=== PATIENT | female | born 1960 | race Caucasian/White ===

== ENCOUNTER 2023-09-20 14:40 | Emergency (ER) | payer BC, SELFPAY ==
[2023-09-20 14:43] VITALS: BP 196/104
[2023-09-20 15:02] LABS: % Basophils 0.7 % (0-2); % Eosinophils 0.8 % (0-6); % Immature Granulocytes 0.4 % (0-0.5); % Lymphocytes 17.9 % (20.5-51.1); % Monocytes 7.5 % (1.7-9.3); % Neutrophils 72.7 % (42.2-75.2); Absolute Basophils 0.1 10^3/uL (0-0.2); Absolute Eosinophils 0.1 10^3/uL (0-0.7); Absolute Lymphocytes 1.3 10^3/uL (1.2-3.4); Absolute Monocytes 0.6 10^3/uL (0.1-0.6); Absolute Neutrophils 5.3 10^3/uL (1.4-6.5); Hematocrit 33.7 % (37.0-47.0); Hemoglobin 11.2 g/dL (12.0-16.0); Mean Corp Hgb Conc. 33.2 g/dL (33.0-37.0); Mean Corpuscular Hgb 27.9 pg (27.0-31.0); Mean Platelet Volume 9.7 fL (7.4-10.4); Nucleated Red Blood Cells % 0 %; Platelet Count 193 10^3/uL (130-400); Red Blood Cell Count 4.01 10^6/uL (4.20-5.40); White Blood Cell Count 7.3 10^3/uL (4.8-10.8)
[2023-09-20 15:15] LABS: ALT (SGPT) 37 U/L (0-35); AST (SGOT) 42 U/L (14-36); Albumin 4.1 g/dl (3.5-5.0); Alkaline Phosphatase 83 U/L (38-126); Blood Urea Nitrogen 25 mg/dl (7-17); Calcium 8.9 mg/dl (8.4-10.2); Carbon Dioxide 31 mmol/L (22-30); Chloride 102 mmol/L (98-107); Glucose 113 mg/dl (70-99); Potassium 4.3 mmol/L (3.5-5.1); Sodium 136 mmol/L (135-145); Total Bilirubin 0.5 mg/dl (0.2-1.3); eGFR > 60.00
[2023-09-20 15:24] LABS: Troponin I < 0.012 ng/ml
--- NOTE | 2023-09-20 16:06 | ED.GENMED ---
History of Present Illness
General
Chief Complaint: Chest Pain
Source: patient
Exam Limitations: none
Time Seen by Provider: 09/20/23 15:59
Nursing documentation reviewed up to this point in time: agreed with
Travel History
Have you had any contact with someone who has COVID-19?: No
Do you have any symptoms of coronavirus? Fever > 100 degrees, chills, cough, shortness of breath, sore throat, loss of taste or smell, muscle aches, or headache?: No
History of Present Illness
History of Present Illness:
Patient is a 62-year-old female who presents to the ER complaining of left-sided chest pain. She reports yesterday morning after she got out of bed and woke up she felt pain in her left chest that was worse when she took a deep breath or moved her
left arm. She thought she slept wrong. She had leftover Flexeril at home and tried that along with Tylenol ibuprofen but still has discomfort. She denies any associated shortness of breath. She feels left-sided pain worse when she takes a deep
breath sits up or moves or moves her left arm. She denies any rash recent illness fever chills. She denies any actual injury. She denies any history of DVT PE. She denies any lower extremity swelling. She is not on oral contraceptives. She
does not smoke. no recent travel.
Review of Systems
Review of Systems
Allergies reviewed?: Yes
All Other Systems: ROS reviewed and negative except as documented in HPI and ROS
Constitutional: Reports no symptoms; Denies fever, fatigue or chills
EENT: Reports no symptoms
Respiratory: Denies cough or trouble breathing
Cardiac: Reports chest pain (left sided chest pain)
ABD/GI: Reports no symptoms
Musculoskeletal: Reports no symptoms
Skin: Reports no symptoms
Neurological: Reports no symptoms
Hematologic/Lymphatic: Reports no symptoms
Psychiatric: Reports no symptoms
Phy Exam
General Physical Exam
General Presentation: no apparent distress
General age: appears stated age
General Skin: warm and dry
General Habitus: normal
General Mental: alert
General Hydration: appears well hydrated
Cardiovascular Exam
Cardiovascular Exam: regular rate/rhythm, no murmur and normal peripheral pulses
Pulmonary Exam
Pulmonary Exam: lungs clear, no respiratory distress and other (left anterior chest is mildly sore to palpation no rash )
Neurological Exam
Neurological Exam: alert and oriented x3
Skin Exam
Skin Exam: normal color and warm/dry
Scores
Heart Score for Chest Pain Patients
STEMI patient?: Not applicable
Course
Orders/Labs/Results
Orders:
Orders
09/20/23 14:45
Electrocardiogram (*1) Urgent
Reason for Study: Chest Pain
EKG- Treatment ONCE
09/20/23 14:51
Complete Blood Count/With Diff Urgent
Comprehensive Metabolic Panel Urgent
Troponin I Urgent
09/20/23 16:30
IV Insert/Care/Rem.- Treatment PRN
Ketorolac [Toradol] 15 mg IV NOW STA
Lidocaine [Lidocaine 4% Patch] 1 patch TOPICAL NOW STA
09/20/23 16:46
DDimer [D-Dimer] Urgent
09/20/23 17:53
Chest [CR Chest - 2 Views ] Urgent
Comment:
Reason For Exam: cp
Abnormal Lab Results
09/20/23
14:51
RBC 4.01 L 10^6/uL
(4.20-5.40)
Hgb 11.2 L g/dL
(12.0-16.0)
Hct 33.7 L %
(37.0-47.0)
RDW 15.0 H %
(11.5-14.5)
Lymphocytes % 17.9 L %
(20.5-51.1)
Carbon Dioxide 31 H mmol/L
(22-30)
BUN 25 H mg/dl
(7-17)
Glucose 113 H mg/dl
(70-99)
AST 42 H U/L
(14-36)
ALT 37 H U/L
(0-35)
09/20/23 14:51
09/20/23 14:51
Vital Signs
Initial and Last Documented VS:
Initial Vital Signs
Temp Pulse Resp BP Pulse Ox
98.9 F 81 18 196/104 94
09/20/23 14:43 09/20/23 14:43 09/20/23 14:43 09/20/23 14:43 09/20/23 14:43
Last Documented Vital Signs
Temp Pulse Resp BP Pulse Ox
98.9 F 88 13 170/88 92
09/20/23 14:43 09/20/23 18:00 09/20/23 18:00 09/20/23 16:11 09/20/23 18:00
MDM/Problems Addressed
Differential Diagnosis Includes:
not limited to: CAD musculoskeletal chest pain. Less likely PE
MDM/Problems Addressed:
Symptoms are consistent more with muscular chest pain. Patient noticed pain after waking up yesterday morning thought she slept wrong. Pain in the left chest is worse with movement sitting up taking a deep breath and moving left arm. Patient is
no cardiac history. She is no acute findings on EKG. She had a negative cardiac troponin and negative D-dimer. She is not tachycardic not sure of breath not hypoxic. Patient was given Toradol and lidocaine patch and feels much better. Will DC
with lidocaine patches with continued ibuprofen and Tylenol alternating with close outpatient follow-up PCP
*Radiology
Radiology exam reviewed: preliminary read by ED provider
*Pulse Oximetry
Patient hypoxic: no
*EKG
Interpreted by ED Provider?: Yes
Comparison EKG: no changes
Heart Rate: 78
Rate: normal
Rhythm: sinus
Ischemia: no ischemia
*Critical Care Note
Total Time (30-74mins, 75-104mins- exclusive of procedures): Not Applicable
ED Attending Note
-
Portions of this chart may have been created with voice recognition software.� Occasional wrong word or��sound alike� substitutions may have occurred due to the inherent limitations of voice recognition software.
Discharge Plan
Departure
Patient Disposition: Home (Routine Discharge)
Date of Disposition: 09/20/23
Time of Disposition: 18:35
Patient with high blood pressure during this ER visit?: Yes
Condition: Fair
Covid-19: Not Applicable
Discharge Problem:
Chest pain
Instructions: Chest Pain PCP Follow Up
Prescriptions:
New
lidocaine 5 % adhesive patch,medicated
1 patch topical DAILY Qty: 15 0RF
Rx Instructions:
remove after 12 hrs
No Action
pioglitazone [Actos] 15 mg Tablet
15 mg PO DAILY
carvedilol 12.5 mg Tablet
12.5 mg PO BID
citalopram 40 mg Tablet
40 mg PO DAILY
hydrocodone-acetaminophen 5-300 mg Tablet
1 tab PO TIDPRN PRN (Reason: severe pain)
Patient Comments:
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
losartan 50 mg Tablet
50 mg PO DAILY
tizanidine 2 mg tablet
2 mg PO TIDPRN PRN (Reason: spams)
therapeutic multivitamin Tablet
1 tab PO DAILY
aspirin 81 mg Tablet,Delayed Release (Dr/Ec)
81 mg PO DAILY
gabapentin 300 mg Capsule
300 mg PO BID
pantoprazole 40 mg tablet,delayed release (DR/EC)
40 mg PO DAILY Qty: 30 0RF
Referrals:
Augusto Wilkinson MD [Family Provider] -
Activity Restrictions/Additional Instructions:
As discussed symptoms are likely musculoskeletal pain. You may alternate between ibuprofen and Tylenol. You may use lidocaine patch daily. Remove after 12 hours. Follow-up with family doctor in the next 2 to 3 days for reevaluation and return
if any worsening of symptoms .
Interventions
Interventions:
*Risk Screen - Suicide Last Done: 09/20/23 14:43
*General Assessment Last Done: 09/20/23 14:43
*Neglect/Abuse Screening Last Done: 09/20/23 14:43
*ED COVID-19 Vaccine History Last Done: 09/20/23 14:43
ED- Cardiac Assessment Last Done: 09/20/23 17:02
[2023-09-20 16:11] VITALS: BP 170/88
[2023-09-20] MEDS: TORADOL 15 MG IV (16:40)
[2023-09-20] MEDS: LIDOCAINE 4% PATCH 1 PATCH TOPICAL (16:40)
[2023-09-20 17:07] LABS: D-Dimer 0.47 ug/mlFEU (0.00-0.50)
== END 2023-09-20 19:25 | disposition home or self-care (01) ==
LOC: EMR 14:40
PROVIDERS: Emergency Medicine; Nurse Practitioner; EMERGENCY PHYSICIAN Emergency Medicine; FAMILY PHYSICIAN Family Medicine
DX: R07.89 Other chest pain (principal); R03.0 Elevated blood-pressure reading, without diagnosis of hypertension
CPT/HCPCS: 99285; 96374; 71046; 80053; 84484; 85025; 85379; 93005

== ENCOUNTER 2024-10-17 06:14 | Emergency (ER) | payer BC, SELFPAY ==
[2024-10-17 06:17] VITALS: BP 144/90
[2024-10-17 06:44] LABS: % Basophils 0.6 % (0-2); % Eosinophils 2.1 % (0-6); % Immature Granulocytes 0.5 % (0-0.5); % Lymphocytes 15.3 % (20.5-51.1); % Monocytes 7.3 % (1.7-9.3); % Neutrophils 74.2 % (42.2-75.2); Absolute Eosinophils 0.1 10^3/uL (0-0.7); Absolute Monocytes 0.5 10^3/uL (0.1-0.6); Absolute Neutrophils 4.9 10^3/uL (1.4-6.5); Hematocrit 31.3 % (37.0-47.0); Hemoglobin 10.2 g/dL (12.0-16.0); Mean Corp Hgb Conc. 32.6 g/dL (33.0-37.0); Mean Corpuscular Hgb 27.3 pg (27.0-31.0); Mean Corpuscular Volume 83.7 fL (81.0-99.0); Nucleated Red Blood Cells % 0 %; Platelet Count 298 10^3/uL (130-400); Red Blood Cell Count 3.74 10^6/uL (4.20-5.40); Red Cell Dist. Width 14.4 % (11.5-14.5); White Blood Cell Count 6.6 10^3/uL (4.8-10.8)
[2024-10-17 07:08] VITALS: BP 124/69
[2024-10-17 07:10] VITALS: BMI 36.3
[2024-10-17 07:18] LABS: Troponin I 0.017 ng/ml
[2024-10-17 07:37] LABS: ALT (SGPT) 36 U/L (0-35); AST (SGOT) 24 U/L (14-36); Albumin 3.5 g/dl (3.5-5.0); Alkaline Phosphatase 92 U/L (38-126); Blood Urea Nitrogen 24 mg/dl (7-17); Calcium 9.2 mg/dl (8.4-10.2); Carbon Dioxide 28 mmol/L (22-30); Chloride 101 mmol/L (98-107); Estimated Creatinine Clearance 87 ml/min; Glucose 173 mg/dl (70-99); Potassium 4.8 mmol/L (3.5-5.1); Sodium 137 mmol/L (135-145); Total Bilirubin 0.5 mg/dl (0.2-1.3); Total Protein 6.3 g/dl (6.3-8.2); eGFR > 60.00
[2024-10-17 08:00] VITALS: BP 128/72
--- NOTE | 2024-10-17 08:05 | EDRN ---
Oscar Estrella PA in to see pt at this time.
--- NOTE | 2024-10-17 08:09 | ED.GENMED ---
History of Present Illness
General
Chief Complaint: Chest Pain
Source: patient
Exam Limitations: none
Time Seen by Provider: 10/17/24 07:59
History of Present Illness
History of Present Illness:
63yoF with a history of hypertension and type 2 diabetes presenting for evaluation of chest pain. Patient has been having intermittent issues with her left shoulder and pain with range of motion quite some time. She woke up this morning around 2
AM with a pain in her left shoulder/upper arm. The pain started to radiate into the left side of the chest. Pain is worse with movement as well as breathing. Pain has been constant since her symptoms began and she was unable to sleep due to her
symptoms. She tried ibuprofen without relief. Patient denies any diaphoresis, dizziness, syncope, nausea, vomiting, paresthesias, fevers. She denies any history of heart disease and has never seen a municipal engineer before. She was seen in the ED in
September 2023 for similar complaints.
Phy Exam
General Physical Exam
General Presentation: well appearing and no apparent distress
General age: appears stated age
General Skin: warm and dry
General Habitus: normal
General Mental: alert
ENT Exam
ENT Exam: normocephalic
Cardiovascular Exam
Cardiovascular Exam: regular rate/rhythm, no edema, no murmur and normal peripheral pulses (2+ radial and DP pulses bilaterally)
Pulmonary Exam
Pulmonary Exam: lungs clear, no respiratory distress, no rales, no crackles, no rhonchi and other (+Reproducible L sided chest wall tenderness. No skin changes.)
Neurological Exam
Neurological Exam: alert
Justino Coma Scale
Eye Opening: Spontaneous
Verbal Response: Oriented
Motor Response: Obeys Commands
GCS Total Score: 15
Skin Exam
Skin Exam: normal color and warm/dry
Psychiatric Exam
Psychiatric Exam: normal mood/affect
Scores
Heart Score for Chest Pain Patients
STEMI patient?: No
History: Slightly or Non-Suspicious
ECG: Normal
Age: >/= 65 years
Risk Factors: 1 or 2 Risk Factors
Troponin: </= Normal Limit
Heart Score for Chest Pain Patients: 3
Heart Score Risk: 2.5% MACE over next 6 weeks
Course
Orders/Labs/Results
Orders:
Orders
10/17/24 06:21
Electrocardiogram (*1) Urgent
Reason for Study: Chest Pain
EKG- Treatment ONCE
10/17/24 06:33
Complete Blood Count/With Diff Urgent
Comprehensive Metabolic Panel Urgent
Troponin I Urgent
10/17/24 08:08
EKG- Treatment ONCE
CR Chest - 2 Views Urgent
Comment:
Reason For Exam: CP
10/17/24 08:09
Cardiac Monitoring- Treatment ONCE
10/17/24 08:12
CR Shoulder - Left Min 2 View* Urgent
Comment:
Reason For Exam: atraumatic pain
10/17/24 08:34
D-Dimer Urgent
10/17/24 09:14
CT Chest PE Study Urgent
Comment:
Reason For Exam: Pleuritic L sided chest pain, elevated D-dimer
10/17/24 09:30
Electrocardiogram (*1) Urgent
Reason for Study: Chest Pain
10/17/24 09:52
Ketorolac [Toradol] 15 mg IV NOW STA
10/17/24 10:08
Troponin I Urgent
Abnormal Lab Results
10/17/24 10/17/24
06:33 08:34
RBC 3.74 L 10^6/uL
(4.20-5.40)
Hgb 10.2 L g/dL
(12.0-16.0)
Hct 31.3 L %
(37.0-47.0)
MCHC 32.6 L g/dL
(33.0-37.0)
Absolute Lymphs (auto) 1.0 L 10^3/uL
(1.2-3.4)
Lymphocytes % 15.3 L %
(20.5-51.1)
D-Dimer 0.60 H ug/mlFEU
(0.00-0.50)
BUN 24 H mg/dl
(7-17)
Glucose 173 H mg/dl
(70-99)
ALT 36 H U/L
(0-35)
10/17/24 06:33
10/17/24 06:33
Vital Signs
Initial and Last Documented VS:
Initial Vital Signs
Temp Pulse Resp BP Pulse Ox
97.3 F 86 22 144/90 94
10/17/24 06:17 10/17/24 06:17 10/17/24 06:17 10/17/24 06:17 10/17/24 06:17
Last Documented Vital Signs
Temp Pulse Resp BP Pulse Ox
97.3 F 74 10 133/86 89
10/17/24 06:17 10/17/24 11:00 10/17/24 10:45 10/17/24 10:00 10/17/24 11:00
MDM/Problems Addressed
Differential Diagnosis Includes:
63yoF here with L sided chest pain. Intermittent L shoulder pain for awhile. Started to radiate to her chest in the middle of the night. Worse with movement and breathing. VSS. She is well-appearing in no acute distress. There is reproducible
chest wall tenderness on exam. Differential diagnosis includes but is not limited to: musculoskeletal, pneumothorax, pneumonia, ACS, PE
Initial ED plan: Cardiac labs and EKG obtained in triage. EKG shows NSR without ischemic changes and troponin WNL. Will check D-dimer, delta troponin/EKG, and CXR. Will trial IV Toradol for pain.
*EKG
Interpreted by ED Provider?: Yes
EKG Intrepretation Date: 10/17/24
Heart Rate: 84
Rate: normal
Rhythm: sinus
Walker: normal axis
Interval: normal interval
QRS Pattern: normal QRS
Ischemia: no ischemia
*Critical Care Note
Total Time (30-74mins, 75-104mins- exclusive of procedures): Not Applicable
Update Note
Update Note:
Left shoulder x-rays show moderately severe degenerative changes with findings suggestive of chronic rotator cuff injury. D-dimer elevated and CTA chest subsequently ordered. CT is negative for pulmonary embolism. Repeat troponin/EKG unchanged.
Pain improved on reassessment after receiving Toradol. Suspect musculoskeletal chest pain. No indication for hospitalization at this time. Supportive care discussed. Patient advised to follow-up with PCP. She was also referred to orthopedics
for her left shoulder issue. ED return precautions discussed. Patient in agreement with plan and was discharged in stable condition.
ED Attending Note
-
Portions of this chart may have been created with voice recognition software.� Occasional wrong word or��sound alike� substitutions may have occurred due to the inherent limitations of voice recognition software.
Discharge Plan
Departure
Patient Disposition: Home (Routine Discharge)
Date of Disposition: 10/17/24
Time of Disposition: 11:49
Patient with high blood pressure during this ER visit?: No
Discharge Problem:
Chest pain, Left shoulder pain
Instructions: Chest Pain PCP Follow Up
Prescriptions:
No Action
pioglitazone [Actos] 15 mg Tablet
15 mg PO DAILY
carvedilol 12.5 mg Tablet
12.5 mg PO BID
citalopram 40 mg Tablet
40 mg PO DAILY
hydrocodone-acetaminophen 5-300 mg Tablet
1 tab PO TIDPRN PRN (Reason: severe pain)
Patient Comments:
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
losartan 50 mg Tablet
50 mg PO DAILY
tizanidine 2 mg tablet
2 mg PO TIDPRN PRN (Reason: spams)
therapeutic multivitamin Tablet
1 tab PO DAILY
aspirin 81 mg Tablet,Delayed Release (Dr/Ec)
81 mg PO DAILY
gabapentin 300 mg Capsule
300 mg PO BID
pantoprazole 40 mg tablet,delayed release (DR/EC)
40 mg PO DAILY Qty: 30 0RF
lidocaine 5 % adhesive patch,medicated
1 patch topical DAILY Qty: 15 0RF
Rx Instructions:
remove after 12 hrs
Referrals:
Augusto Wilkinson MD [Family Provider] -
Junaid Aguilar MD [Active] -
Stand Alone Forms: Return to Work
Activity Restrictions/Additional Instructions:
Take Tylenol and Motrin for pain. Apply heat to affected area.
Please follow-up with your family doctor and orthopedics. Return to the ER with any new or worsening symptoms.
Interventions
Interventions:
*Risk Screen - Suicide Last Done: 10/17/24 07:10
*General Assessment Last Done: 10/17/24 07:10
*Neglect/Abuse Screening Last Done: 10/17/24 07:10
*ED- Fall Risk Assessment Last Done: 10/17/24 07:10
*ED COVID-19 Vaccine History Last Done: 10/17/24 07:10
*Nursing Disposition Last Done: 10/17/24 12:20
ED- Cardiac Assessment Last Done: 10/17/24 07:10
Discharge Date and Time
Discharge Date/Time: 10/17/24 12:21
Print Language: LEBANESE
[2024-10-17 09:00] VITALS: BP 134/79
[2024-10-17 10:00] VITALS: BP 133/86
[2024-10-17] MEDS: TORADOL 15 MG IV (10:09)
--- NOTE | 2024-10-17 10:12 | EDRN ---
Pt OOB to BR at this time. Troponin #2 sent, will return to get repeat EKG.
[2024-10-17 10:52] LABS: Troponin I < 0.012 ng/ml
== END 2024-10-17 12:21 | disposition home or self-care (01) ==
LOC: EMR 06:14
PROVIDERS: Emergency Medicine; Physician Assistant; EMERGENCY PHYSICIAN Emergency Medicine; FAMILY PHYSICIAN Family Medicine
DX: R07.89 Other chest pain (principal); M25.512 Pain in left shoulder; E11.9 Type 2 diabetes mellitus without complications; I10 Essential (primary) hypertension; R79.1 Abnormal coagulation profile
CPT/HCPCS: 99285; 96374; 71046; 71275; 73030; 80053; 84484; 85025; 85379; 93005; Q9967